=== PATIENT | female | born 1950 | race Caucasian/White ===

== ENCOUNTER → 2023-11-21 08:49 | Outpatient (REF) | payer MEDICARE, OTHER, SELFPAY | LOC: HWRAD 08:49 | PROVIDERS: ATTENDING PHYSICIAN Nurse Practitioner Family | DX: R39.9 Unspecified symptoms and signs involving the genitourinary system (principal); R10.9 Unspecified abdominal pain; R31.9 Hematuria, unspecified | CPT/HCPCS: 76770 ==

== ENCOUNTER → 2023-12-02 07:55 | Outpatient (REF) | payer MEDICARE, OTHER, SELFPAY ==
[2023-12-02 10:03] LABS: % Basophils 1.4 % (0-2); % Eosinophils 7.4 % (0-6); % Immature Granulocytes 0.4 % (0-0.5); % Lymphocytes 32.2 % (20.5-51.1); % Monocytes 9.7 % (1.7-9.3); % Neutrophils 48.9 % (42.2-75.2); Absolute Basophils 0.1 10^3/uL (0-0.2); Absolute Eosinophils 0.4 10^3/uL (0-0.7); Absolute Lymphocytes 1.6 10^3/uL (1.2-3.4); Absolute Monocytes 0.5 10^3/uL (0.1-0.6); Absolute Neutrophils 2.4 10^3/uL (1.4-6.5); Hematocrit 40.8 % (37.0-47.0); Hemoglobin 14.2 g/dL (12.0-16.0); Mean Corp Hgb Conc. 34.8 g/dL (33.0-37.0); Mean Corpuscular Hgb 29.8 pg (27.0-31.0); Mean Corpuscular Volume 85.5 fL (81.0-99.0); Nucleated Red Blood Cells % 0 %; Platelet Count 197 10^3/uL (130-400); Red Blood Cell Count 4.77 10^6/uL (4.20-5.40); Red Cell Dist. Width 13.2 % (11.5-14.5); White Blood Cell Count 4.9 10^3/uL (4.8-10.8)
[2023-12-02 10:06] LABS: Urine Albumin Negative (Neg - Trace); Urine Bilirubin Negative (Negative); Urine Character Clear (Clear); Urine Color Yellow; Urine Glucose Negative (Negative); Urine Ketone Negative (Negative); Urine Leukocyte 1+ (Negative); Urine Nitrite Negative (Negative); Urine Occult Blood Trace (Negative); Urine Urobilinogen Negative (Neg - 1+)
[2023-12-02 10:20] LABS: ALT (SGPT) 27 U/L (0-35); AST (SGOT) 32 U/L (14-36); Alkaline Phosphatase 101 U/L (38-126); Blood Urea Nitrogen 17 mg/dl (7-17); Calcium 9.6 mg/dl (8.4-10.2); Carbon Dioxide 28 mmol/L (22-30); Chloride 106 mmol/L (98-107); Glucose 93 mg/dl (70-99); HDL Cholesterol 69 mg/dl; LDL Cholesterol, Calculated 83 mg/dl; Potassium 4.5 mmol/L (3.5-5.1); Sodium 138 mmol/L (135-145); Total Bilirubin 0.5 mg/dl (0.2-1.3); Total Cholesterol 167 mg/dl (50-199); Total Protein 6.3 g/dl (6.3-8.2); Triglyceride 78 mg/dl (10-149); Very Low Density Lipoprotein 15 mg/dl (0-30); eGFR > 60.00
[2023-12-02 10:25] LABS: Urine Red Blood Cell 0-2 /HPF (0-2); Urine Squamous Cell 21-25 /LPF (Few)
[2023-12-02 10:26] LABS: Urine Bacteria Few (Negative)
[2023-12-02 10:32] LABS: Vitamin D, 25-OH*** 49.2 ng/mL (30-80)
[2023-12-02 10:46] LABS: TSH Reflex To Free T4 2.27 uIU/ml (0.47-4.68)
== END ==
LOC: HWLAB 07:55
PROVIDERS: ATTENDING PHYSICIAN Nurse Practitioner Family
DX: I63.9 Cerebral infarction, unspecified (principal); R41.3 Other amnesia; E78.5 Hyperlipidemia, unspecified; E55.9 Vitamin D deficiency, unspecified; F32.A Depression, unspecified; R41.89 Other symptoms and signs involving cognitive functions and awareness; R25.1 Tremor, unspecified; I65.23 Occlusion and stenosis of bilateral carotid arteries; I44.4 Left anterior fascicular block
CPT/HCPCS: 36415; 80053; 80061; 81003; 81015; 82306; 84443; 85025; 87086

== ENCOUNTER → 2023-12-27 12:50 | Outpatient (REF) | payer MEDICARE, OTHER, SELFPAY | LOC: HWRAD 12:50 | PROVIDERS: ATTENDING PHYSICIAN Nurse Practitioner Family | DX: R22.1 Localized swelling, mass and lump, neck (principal) | CPT/HCPCS: 76536 ==

== ENCOUNTER 2024-01-26 21:15 | Emergency (ER) | payer MEDICARE, OTHER, SELFPAY ==
[2024-01-26 21:22] VITALS: BP 200/82
[2024-01-26 21:51] LABS: % Basophils 0.8 % (0-2); % Eosinophils 2.5 % (0-6); % Immature Granulocytes 0.2 % (0-0.5); % Lymphocytes 35.4 % (20.5-51.1); % Monocytes 9.6 % (1.7-9.3); % Neutrophils 51.5 % (42.2-75.2); Absolute Basophils 0.1 10^3/uL (0-0.2); Absolute Eosinophils 0.2 10^3/uL (0-0.7); Absolute Lymphocytes 2.3 10^3/uL (1.2-3.4); Absolute Monocytes 0.6 10^3/uL (0.1-0.6); Absolute Neutrophils 3.3 10^3/uL (1.4-6.5); Hematocrit 38.8 % (37.0-47.0); Hemoglobin 13.8 g/dL (12.0-16.0); Mean Corp Hgb Conc. 35.6 g/dL (33.0-37.0); Mean Corpuscular Hgb 30.5 pg (27.0-31.0); Mean Corpuscular Volume 85.7 fL (81.0-99.0); Mean Platelet Volume 8.7 fL (7.4-10.4); Nucleated Red Blood Cells % 0 %; Platelet Count 216 10^3/uL (130-400); Red Blood Cell Count 4.53 10^6/uL (4.20-5.40); Red Cell Dist. Width 13.7 % (11.5-14.5); White Blood Cell Count 6.4 10^3/uL (4.8-10.8)
[2024-01-26 22:10] LABS: ALT (SGPT) 48 U/L (0-35); AST (SGOT) 49 U/L (14-36); Albumin 4.4 g/dl (3.5-5.0); Alkaline Phosphatase 123 U/L (38-126); Blood Urea Nitrogen 22 mg/dl (7-17); Calcium 10.1 mg/dl (8.4-10.2); Carbon Dioxide 25 mmol/L (22-30); Chloride 106 mmol/L (98-107); Glucose 100 mg/dl (70-99); Lipase 172 U/L (23-300); Potassium 3.9 mmol/L (3.5-5.1); Sodium 136 mmol/L (135-145); Total Bilirubin 0.3 mg/dl (0.2-1.3); Total Protein 6.7 g/dl (6.3-8.2); eGFR > 60.00
[2024-01-26 22:15] LABS: Troponin I < 0.012 ng/ml
--- NOTE | 2024-01-26 23:00 | ED.GENMED ---
History of Present Illness
General
Chief Complaint: Chest Pain
Time Seen by Provider: 01/26/24 22:39
Travel History
Have you had any contact with someone who has COVID-19?: No
Do you have any symptoms of coronavirus? Fever > 100 degrees, chills, cough, shortness of breath, sore throat, loss of taste or smell, muscle aches, or headache?: No
History of Present Illness
History of Present Illness:
HPI: Patient presents with chest discomfort ongoing for the past few days. She also tells me she has been using an elliptical earlier this week without any increase in pain during exertion. She also think that using the elliptical may be
contributing to ongoing and worsening right hip to the sensation that she is having tremendous instability causing her to have difficulty walking. She does not think that she is going to be able to go on her upcoming trip to [place] tomorrow.
She also reports GI kind of symptoms and had pain in her chest going into her back. She has tried her 's PPI without improvement. She has had colonoscopy and was told she has some sort of colitis in the past. She is found to be
hypertensive here and was told that she has a high blood pressure reading at 160 a few months ago for which she was supposed to follow-up for repeat blood pressure check.
EXAM:
GENERAL: Well appearing in no distress
HEENT: Moist oral mucosa
CARDIOVASCULAR: Systolic murmur in the right upper sternal border, normal heart rate, regular rhythm, No chest wall tenderness
PULMONARY: No respiratory distress, breath sounds are clear and equal
ABDOMEN: Soft with no peritoneal signs, no tenderness
NEUROLOGIC: Excellent strength all extremities, no coordination deficits
PSYCHIATRIC: Appropriate mental status, normal insight and judgement
EXTREMITIES: Nontender, no edema, moves all extremities equally, there is no specific pain at the right hip with passive range of motion and she only has slightly decreased active range of motion
SKIN: No rash, no lesions
TIME OF INITIAL ENCOUNTER:
NUMBER AND COMPLEXITY OF PROBLEMS ADDRESSED AT THE ENCOUNTER
� Chronic conditions affecting care: Hyperlipidemia, skin cancer, asthma
� Acute Exacerbation and/or Progression of Chronic Illness: This is an acute problem
� Differential Diagnosis includes: Osteoarthritis, noncardiac chest pain, ACS, GI etiology of chest discomfort such as GERD
AMOUNT AND/OR COMPLEXITY OF DATA TO BE REVIEWED AND ANALYZED
� I performed an independent evaluation of and my interpretation is:
EKG: Sinus 63, left axis deviation, no acute ST abnormality however there is some poor R wave progression which is only slightly more prominent now in comparison to 04/13/2013
CT:
X-rays: X-ray of the chest is, x-ray of the right hip shows some mild DJD
Laboratory Studies: Troponin less than 0.012, CBC and other chemistries unremarkable
Other:
� Review of other/old records: Echo from 2021 showed normal diastolic function and normal systolic function with no significant valvular disease; stress echo from 2019 was unremarkable
� Clinical information was obtained by an independent historian: I spoke to the at bedside
� Prescriptions/Medications Considered but not given:
� Further testing considered but not performed:
RISK OF COMPLICATIONS AND/OR MORBIDITY OR MORTALITY OF PATIENT MANAGEMENT
� Social determinants of health affecting care: Lives at home
� Discussion with other providers:
� Escalation of care including admission/observation vs risk of discharge considered: The patient's symptoms may be multifactorial. Her symptoms became most severe around 12 noon today and currently has no pain without any
intervention. Her troponin is currently negative. EKG is unremarkable. Blood pressures have been elevated close to around 200 on multiple checks. She states that she had a blood pressure reading of 160 at her PMD office. I am placing her on
losartan and she is to continue checking her blood pressure at home. She has no chest pain throughout her stay in the ED.
Past History
Past History
ED Past Medical History: Asthma (mild ), Hypercholesterolemia and Other (pancreatitis)
ED Past Surgical History: Orthopedic (dr santiago )
Social History
Tobacco: Non-smoker
Alcohol: None
Drug: None
Personal:
Living: with family
Employment: Employed
Family History
Family History: Hypertension; Negative Early CAD
Phy Exam
Physical Exam
Physical Exam:
See HPI
Scores
Heart Score for Chest Pain Patients
STEMI patient?: Not applicable
Course
Orders/Labs/Results
Orders:
Orders
01/26/24 21:31
Electrocardiogram (*1) Urgent
Reason for Study: Chest Pain
EKG- Treatment ONCE
01/26/24 21:46
CMP [Comprehensive Metabolic Panel] Urgent
Complete Blood Count/With Diff Urgent
Lipase Urgent
Troponin I Urgent
01/26/24 23:14
CR Chest - 2 Views Urgent
Comment:
Reason For Exam: CP
CR Hip - RT w/wo Pel 2-3 Vw* Urgent
Comment:
Reason For Exam: pain
Include a pelvis x-ray?: Yes
Abnormal Lab Results
01/26/24
21:46
Monocytes % 9.6 H %
(1.7-9.3)
BUN 22 H mg/dl
(7-17)
Creatinine 0.5 L mg/dL
(0.6-1.0)
Glucose 100 H mg/dl
(70-99)
AST 49 H U/L
(14-36)
ALT 48 H U/L
(0-35)
01/26/24 21:46
01/26/24 21:46
Vital Signs
Initial and Last Documented VS:
Initial Vital Signs
Temp Pulse Resp BP Pulse Ox
97.6 F 64 18 200/82 100
01/26/24 21:22 01/26/24 21:22 01/26/24 21:22 01/26/24 21:22 01/26/24 21:22
Last Documented Vital Signs
Temp Pulse Resp BP Pulse Ox
97.6 F 64 18 200/82 100
01/26/24 21:22 01/26/24 21:22 01/26/24 21:22 01/26/24 21:22 01/26/24 21:22
*Critical Care Note
Total Time (30-74mins, 75-104mins- exclusive of procedures): Not Applicable
ED Attending Note
-
Portions of this chart may have been created with voice recognition software.� Occasional wrong word or��sound alike� substitutions may have occurred due to the inherent limitations of voice recognition software.
Discharge Plan
Departure
Prescriptions:
No Action
fluticasone propion-salmeterol [Advair Diskus] 1 DISK blister with device
1 puff inhalation BID
aspirin 81 MG tablet,delayed release (DR/EC)
81 mg PO DAILY
ibuprofen 600 MG tablet
600 mg PO DAILY
albuterol sulfate [Proventil HFA] 90 MCG/PUFF HFA aerosol inhaler
1 puff inhalation QID PRN (Reason: sob)
docosahexaenoic acid-epa 1 CAP capsule
1 cap PO DAILY
rosuvastatin [Crestor] 10 MG tablet
10 mg PO DAILY
multivitamin with folic acid [Tab-A-Bonita] 1 TABLET tablet
1 tab PO DAILY
prednisone 50 MG tablet
50 mg PO DAILY Qty: 7 0RF
Referrals:
Kelsie Mederos DO [Family Provider] -
Interventions
Interventions:
*Risk Screen - Suicide Last Done: 01/26/24 21:22
*General Assessment Last Done: 01/26/24 23:13
*Neglect/Abuse Screening Last Done: 01/26/24 21:22
ED- Fall Risk Assessment Last Done: 01/26/24 23:13
*ED COVID-19 Vaccine History Last Done: 01/26/24 23:13
ED- Cardiac Assessment Last Done: 01/26/24 23:13
ED-Musculoskeletal Assessment Last Done: 01/26/24 23:13
Discharge Date and Time
Print Language: BAHAMIAN
[2024-01-26 23:11] VITALS: BP 200/99
--- NOTE | 2024-01-26 23:20 | EDRN ---
that she over the last month intermittently she had a pain that radiates across groin from R hip. pt has fallen from her knees giving out.
[2024-01-27 00:07] VITALS: BP 172/73
== END 2024-01-27 01:25 | disposition home or self-care (01) ==
LOC: EMR 21:15
PROVIDERS: Emergency Medicine; EMERGENCY PHYSICIAN Emergency Medicine; FAMILY PHYSICIAN Family Medicine
DX: R07.89 Other chest pain (principal)
CPT/HCPCS: 99283; 71046; 73502; 80053; 83690; 84484; 85025; 93005

== ENCOUNTER 2024-01-31 09:28 | Emergency (ER) | payer MEDICARE, OTHER, SELFPAY ==
[2024-01-31 09:37] VITALS: BP 165/88
[2024-01-31 10:13] VITALS: BMI 30.8
[2024-01-31 10:32] LABS: % Eosinophils 1.7 % (0-6); % Immature Granulocytes 0.2 % (0-0.5); % Lymphocytes 23.8 % (20.5-51.1); % Monocytes 8.2 % (1.7-9.3); % Neutrophils 65.1 % (42.2-75.2); Absolute Basophils 0.1 10^3/uL (0-0.2); Absolute Eosinophils 0.1 10^3/uL (0-0.7); Absolute Lymphocytes 1.4 10^3/uL (1.2-3.4); Absolute Monocytes 0.5 10^3/uL (0.1-0.6); Absolute Neutrophils 3.9 10^3/uL (1.4-6.5); Hemoglobin 14.8 g/dL (12.0-16.0); Mean Corp Hgb Conc. 35.2 g/dL (33.0-37.0); Mean Corpuscular Hgb 30.4 pg (27.0-31.0); Mean Corpuscular Volume 86.2 fL (81.0-99.0); Mean Platelet Volume 8.6 fL (7.4-10.4); Nucleated Red Blood Cells % 0 %; Platelet Count 207 10^3/uL (130-400); Red Blood Cell Count 4.87 10^6/uL (4.20-5.40); Red Cell Dist. Width 13.3 % (11.5-14.5)
[2024-01-31 10:45] LABS: ALT (SGPT) 38 U/L (0-35); AST (SGOT) 38 U/L (14-36); Albumin 4.5 g/dl (3.5-5.0); Alkaline Phosphatase 76 U/L (38-126); Blood Urea Nitrogen 18 mg/dl (7-17); Calcium 9.9 mg/dl (8.4-10.2); Carbon Dioxide 26 mmol/L (22-30); Chloride 107 mmol/L (98-107); Estimated Creatinine Clearance 82 ml/min; Glucose 92 mg/dl (70-99); Potassium 4.5 mmol/L (3.5-5.1); Sodium 137 mmol/L (135-145); Total Bilirubin 0.7 mg/dl (0.2-1.3); Total Protein 6.9 g/dl (6.3-8.2); eGFR > 60.00
[2024-01-31 10:55] LABS: Troponin I < 0.012 ng/ml
[2024-01-31 11:03] LABS: Lipase 67 U/L (23-300)
[2024-01-31] MEDS: MORPHINE SULFATE 4 MG IV (11:41)
[2024-01-31] MEDS: ZOFRAN 4 MG IV (11:42)
--- NOTE | 2024-01-31 14:47 | ED.GENMED ---
History of Present Illness
General
Chief Complaint: Chest Pain
Source: patient and family
Time Seen by Provider: 01/31/24 10:05
Travel History
Have you had any contact with someone who has COVID-19?: No
Do you have any symptoms of coronavirus? Fever > 100 degrees, chills, cough, shortness of breath, sore throat, loss of taste or smell, muscle aches, or headache?: No
Past History
Past History
ED Past Medical History: Asthma (mild ), Hypercholesterolemia and Other (pancreatitis)
ED Past Surgical History: Orthopedic (dr santiago )
Social History
Tobacco: Non-smoker
Alcohol: None
Drug: None
Personal:
Living: with family
Employment: Employed
Family History
Family History: Hypertension; Negative Early CAD
Course
Orders/Labs/Results
Orders:
Orders
01/31/24 09:30
Electrocardiogram (*1) Urgent
Reason for Study: Chest Pain
EKG- Treatment ONCE
01/31/24 10:23
Complete Blood Count/With Diff Urgent
Comprehensive Metabolic Panel Urgent
Lipase Urgent
Comment: ADD ON
Troponin I Urgent
01/31/24 10:42
Add On- LAB Urgent
Tests Added?: lipase
01/31/24 10:43
CT Chest/abd/pelvis Angio W/wo Urgent
Comment:
Reason For Exam: cp, back pain
01/31/24 10:45
Morphine Sulfate 4 mg IV NOW STA
01/31/24 10:46
Ondansetron Injectable [Zofran] 4 mg IV NOW STA
Abnormal Lab Results
01/31/24
10:23
BUN 18 H mg/dl
(7-17)
Creatinine 0.5 L mg/dL
(0.6-1.0)
AST 38 H U/L
(14-36)
ALT 38 H U/L
(0-35)
01/31/24 10:23
01/31/24 10:23
Vital Signs
Initial and Last Documented VS:
Initial Vital Signs
Temp Pulse Resp BP Pulse Ox
98.7 F 73 20 165/88 98
01/31/24 09:37 01/31/24 09:37 01/31/24 09:37 01/31/24 09:37 01/31/24 09:37
Last Documented Vital Signs
Temp Pulse Resp BP Pulse Ox
98.7 F 59 13 165/88 98
01/31/24 09:37 01/31/24 13:00 01/31/24 13:00 01/31/24 09:37 01/31/24 09:37
ED Attending Note
-
Portions of this chart may have been created with voice recognition software.� Occasional wrong word or��sound alike� substitutions may have occurred due to the inherent limitations of voice recognition software.
Discharge Plan
Departure
Patient Disposition: Home (Routine Discharge)
Date of Disposition: 01/31/24
Time of Disposition: 14:47
Patient with high blood pressure during this ER visit?: Yes
Discharge Problem:
Cholelithiasis, Hernia, hiatal
Instructions: Hiatal hernia, Gallstones
Prescriptions:
New
pantoprazole [Protonix] 40 mg tablet,delayed release (DR/EC)
40 mg PO DAILY Qty: 30 0RF
Rx Instructions:
Please take 30 minutes prior to eating or drinking anything in the morning.
No Action
fluticasone propion-salmeterol [Advair Diskus] 1 DISK blister with device
1 puff inhalation BID
aspirin 81 MG tablet,delayed release (DR/EC)
81 mg PO DAILY
ibuprofen 600 MG tablet
600 mg PO DAILY
albuterol sulfate [Proventil HFA] 90 MCG/PUFF HFA aerosol inhaler
1 puff inhalation QID PRN (Reason: sob)
docosahexaenoic acid-epa 1 CAP capsule
1 cap PO DAILY
rosuvastatin [Crestor] 10 MG tablet
10 mg PO DAILY
multivitamin with folic acid [Tab-A-Bonita] 1 TABLET tablet
1 tab PO DAILY
prednisone 50 MG tablet
50 mg PO DAILY Qty: 7 0RF
losartan 50 mg tablet
50 mg PO DAILY Qty: 30 0RF
Referrals:
Sahra Kaiser CRNP [Family Provider] -
Activity Restrictions/Additional Instructions:
Please see GI in follow-up in the next 1 week. Return to immediately for intractable vomiting, worsening pain, fevers or any other concerns. Please be sure to eat a no fat diet keep your diet bland. I recommend small meals instead of large meals.
Drink plenty of fluids.
Interventions
Interventions:
ED- Fall Risk Assessment Last Done: 01/31/24 10:13
*ED COVID-19 Vaccine History Last Done: 01/31/24 09:43
ED- Cardiac Assessment Last Done: 01/31/24 10:13
Discharge Date and Time
Print Language: LUXEMBOURGISH
[2024-01-31 15:55] VITALS: BP 125/75
== END 2024-01-31 16:05 | disposition home or self-care (01) ==
LOC: EMR 09:28
PROVIDERS: EMERGENCY PHYSICIAN Emergency Medicine; FAMILY PHYSICIAN Nurse Practitioner Family
DX: K80.20 Calculus of gallbladder without cholecystitis without obstruction (principal); K44.9 Diaphragmatic hernia without obstruction or gangrene; R03.0 Elevated blood-pressure reading, without diagnosis of hypertension
CPT/HCPCS: 99285; 96374; 96375; 71275; 74174; 80053; 83690; 84484; 85025; 93005; Q9967

== ENCOUNTER → 2024-02-21 18:15 | Outpatient (REF) | payer MEDICARE, OTHER, SELFPAY | LOC: PAVMRI 18:15 | PROVIDERS: ATTENDING PHYSICIAN Physician Assistant Surgical | DX: M25.551 Pain in right hip (principal) | CPT/HCPCS: 73721 ==

== ENCOUNTER → 2024-03-03 14:16 | Outpatient (REF) | payer MEDICARE, OTHER, SELFPAY | LOC: RCS 14:16 | PROVIDERS: ATTENDING PHYSICIAN Nurse Practitioner; FAMILY PHYSICIAN Family Medicine | DX: R06.09 Other forms of dyspnea (principal) | CPT/HCPCS: 93017; 93350 ==

== ENCOUNTER → 2024-03-19 07:15 | Outpatient (REF) | payer MEDICARE, OTHER, SELFPAY ==
[2024-03-19 10:17] LABS: ALT (SGPT) 29 U/L (0-35); AST (SGOT) 38 U/L (14-36); Albumin 4.5 g/dl (3.5-5.0); Alkaline Phosphatase 82 U/L (38-126); Blood Urea Nitrogen 21 mg/dl (7-17); Calcium 9.8 mg/dl (8.4-10.2); Carbon Dioxide 28 mmol/L (22-30); Chloride 106 mmol/L (98-107); Glucose 84 mg/dl (70-99); Potassium 3.9 mmol/L (3.5-5.1); Sodium 140 mmol/L (135-145); Total Bilirubin 0.7 mg/dl (0.2-1.3); Total Protein 6.8 g/dl (6.3-8.2); eGFR > 60.00
== END ==
LOC: HWLAB 07:15
PROVIDERS: ATTENDING PHYSICIAN Internal Medicine; FAMILY PHYSICIAN Nurse Practitioner Family
DX: R74.8 Abnormal levels of other serum enzymes (principal)
CPT/HCPCS: 36415; 80053

== ENCOUNTER → 2024-03-20 06:21 | Day surgery (SDC) | payer MEDICARE, OTHER, SELFPAY | LOC: GI 06:21 | PROVIDERS: ATTENDING PHYSICIAN Internal Medicine | DX: R13.10 Dysphagia, unspecified (principal); R14.0 Abdominal distension (gaseous); R07.89 Other chest pain; K44.9 Diaphragmatic hernia without obstruction or gangrene; Q39.9 Congenital malformation of esophagus, unspecified; K31.89 Other diseases of stomach and duodenum; I89.0 Lymphedema, not elsewhere classified; K20.90 Esophagitis, unspecified without bleeding | CPT/HCPCS: 43239; 88305; 88342 ==

== ENCOUNTER → 2024-09-07 08:10 | Outpatient (REF) | payer MEDICARE, OTHER, SELFPAY | LOC: UCDH 08:10 | PROVIDERS: ATTENDING PHYSICIAN Physician Assistant Medical; FAMILY PHYSICIAN Family Medicine | DX: S60.022A Contusion of left index finger without damage to nail, initial encounter (principal) | CPT/HCPCS: 73140 ==

== ENCOUNTER → 2024-09-21 07:02 | Outpatient (REF) | payer MEDICARE, OTHER, SELFPAY ==
[2024-09-21 09:37] LABS: % Basophils 1.1 % (0-2); % Eosinophils 1.6 % (0-6); % Immature Granulocytes 0.3 % (0-0.5); % Lymphocytes 33.2 % (20.5-51.1); % Monocytes 9.8 % (1.7-9.3); Absolute Eosinophils 0.1 10^3/uL (0-0.7); Absolute Lymphocytes 1.2 10^3/uL (1.2-3.4); Absolute Monocytes 0.4 10^3/uL (0.1-0.6); Hemoglobin 14.2 g/dL (12.0-16.0); Mean Corpuscular Hgb 29.2 pg (27.0-31.0); Mean Corpuscular Volume 88.5 fL (81.0-99.0); Mean Platelet Volume 9.7 fL (7.4-10.4); Nucleated Red Blood Cells % 0 %; Platelet Count 192 10^3/uL (130-400); Red Blood Cell Count 4.86 10^6/uL (4.20-5.40); Red Cell Dist. Width 12.7 % (11.5-14.5); White Blood Cell Count 3.7 10^3/uL (4.8-10.8)
[2024-09-21 09:38] LABS: ALT (SGPT) 25 U/L (0-35); AST (SGOT) 30 U/L (14-36); Albumin 4.3 g/dl (3.5-5.0); Alkaline Phosphatase 69 U/L (38-126); Blood Urea Nitrogen 12 mg/dl (7-17); Calcium 9.9 mg/dl (8.4-10.2); Carbon Dioxide 29 mmol/L (22-30); Chloride 103 mmol/L (98-107); Glucose 92 mg/dl (70-99); Sodium 139 mmol/L (135-145); Total Bilirubin 0.5 mg/dl (0.2-1.3); Total Protein 6.5 g/dl (6.3-8.2); eGFR > 60.00
== END ==
LOC: HWLAB 07:02
PROVIDERS: ATTENDING PHYSICIAN Orthopaedic Surgery; FAMILY PHYSICIAN Family Medicine; REFERRING PHYSICIAN Internal Medicine
DX: Z01.818 Encounter for other preprocedural examination (principal); R74.8 Abnormal levels of other serum enzymes
CPT/HCPCS: 36415; 80053; 85025

== ENCOUNTER → 2024-09-24 08:57 | Outpatient (REF) | payer MEDICARE, OTHER, SELFPAY | LOC: RAD 08:57 | PROVIDERS: ATTENDING PHYSICIAN Nurse Practitioner Family | DX: Z01.818 Encounter for other preprocedural examination (principal) | CPT/HCPCS: 71046 ==

== ENCOUNTER → 2025-03-03 06:42 | Outpatient (REF) | payer MEDICARE, OTHER, SELFPAY ==
[2025-03-03 09:25] LABS: % Basophils 1.6 % (0-2); % Eosinophils 4.4 % (0-6); % Immature Granulocytes 0.3 % (0-0.5); % Lymphocytes 26.8 % (20.5-51.1); % Monocytes 10.1 % (1.7-9.3); % Neutrophils 56.8 % (42.2-75.2); Absolute Basophils 0.1 10^3/uL (0-0.2); Absolute Eosinophils 0.2 10^3/uL (0-0.7); Absolute Monocytes 0.4 10^3/uL (0.1-0.6); Absolute Neutrophils 2.1 10^3/uL (1.4-6.5); Hematocrit 41.5 % (37.0-47.0); Hemoglobin 14.2 g/dL (12.0-16.0); Mean Corp Hgb Conc. 34.2 g/dL (33.0-37.0); Mean Corpuscular Volume 84.9 fL (81.0-99.0); Mean Platelet Volume 9.5 fL (7.4-10.4); Nucleated Red Blood Cells % 0 %; Platelet Count 197 10^3/uL (130-400); Red Blood Cell Count 4.89 10^6/uL (4.20-5.40); Red Cell Dist. Width 13.6 % (11.5-14.5); White Blood Cell Count 3.7 10^3/uL (4.8-10.8)
[2025-03-03 09:35] LABS: ALT (SGPT) 27 U/L (0-35); AST (SGOT) 34 U/L (14-36); Albumin 4.5 g/dl (3.5-5.0); Alkaline Phosphatase 85 U/L (38-126); Blood Urea Nitrogen 13 mg/dl (7-17); Calcium 9.9 mg/dl (8.4-10.2); Carbon Dioxide 26 mmol/L (22-30); Chloride 109 mmol/L (98-107); Glucose 97 mg/dl (70-99); HDL Cholesterol 64 mg/dl; LDL Cholesterol, Calculated 113 mg/dl; Potassium 4.1 mmol/L (3.5-5.1); Sodium 142 mmol/L (135-145); Total Bilirubin 0.7 mg/dl (0.2-1.3); Total Cholesterol 193 mg/dl (50-199); Total Protein 6.7 g/dl (6.3-8.2); Triglyceride 82 mg/dl (10-149); Very Low Density Lipoprotein 16 mg/dl (0-30); eGFR > 60.00
[2025-03-03 10:26] LABS: TSH Reflex To Free T4 2.06 uIU/ml (0.47-4.68)
== END ==
LOC: HWLAB 06:42
PROVIDERS: ATTENDING PHYSICIAN Internal Medicine; FAMILY PHYSICIAN Family Medicine
DX: I65.23 Occlusion and stenosis of bilateral carotid arteries (principal); E78.5 Hyperlipidemia, unspecified; R06.09 Other forms of dyspnea
CPT/HCPCS: 36415; 80053; 80061; 84443; 85025

== ENCOUNTER → 2025-03-08 14:52 | Outpatient (REF) | payer MEDICARE, OTHER, SELFPAY | LOC: RCS 14:52 | PROVIDERS: ATTENDING PHYSICIAN Internal Medicine; FAMILY PHYSICIAN Family Medicine | DX: I65.23 Occlusion and stenosis of bilateral carotid arteries (principal); R06.09 Other forms of dyspnea; R42 Dizziness and giddiness; R61 Generalized hyperhidrosis | CPT/HCPCS: 93306 ==

== ENCOUNTER → 2025-03-09 11:38 | Outpatient (REF) | payer MEDICARE, OTHER, SELFPAY | LOC: RCS 11:38 | PROVIDERS: ATTENDING PHYSICIAN Internal Medicine; FAMILY PHYSICIAN Family Medicine | DX: I65.23 Occlusion and stenosis of bilateral carotid arteries (principal); R06.09 Other forms of dyspnea; R42 Dizziness and giddiness; R61 Generalized hyperhidrosis | CPT/HCPCS: 78452; 93017; A9500 ==

== ENCOUNTER 2025-04-15 19:15 | Emergency (ER) | payer MEDICARE, OTHER, SELFPAY ==
[2025-04-15 19:18] VITALS: BP 168/87
[2025-04-15 21:47] VITALS: BP 142/63
[2025-04-15 21:49] VITALS: BMI 32.4
[2025-04-15 22:00] VITALS: BP 156/80
[2025-04-15] MEDS: VALIUM 2 MG PO (22:34)
--- NOTE | 2025-04-15 22:45 | ED.MUSCINJ ---
HPI-Injury
General
Chief Complaint: Musculo-Skeletal Complaint
Source: patient
Exam Limitations: none
Time Seen by Provider: 04/15/25 21:29
History of Present Illness-Injury
Initial Injury comments:
74-year-old female not anticoagulated presents complaining of right lower rib pain. She fell today landing on her hands. She was seen in urgent care and found to have a distal radius and possibly distal ulnar fracture. She was placed in a splint
and a sling however upon leaving the urgent care she developed more chest wall discomfort. It is sharp stabbing in nature worse with motion and breathing at times. No vomiting. No other complaints at this time
Past History
Past History
ED Past Medical History: Asthma (mild ), Hypercholesterolemia and Other (pancreatitis)
ED Past Surgical History: Orthopedic (dr santiago )
Social History
Tobacco: Non-smoker
Alcohol: None
Drug: None
Personal:
Living: with family
Employment: Employed
Family History
Family History: Hypertension; Negative Early CAD
Phy Exam
Physical Exam
Physical Exam:
General: Well-appearing female in no acute respiratory distress
HEENT normocephalic atraumatic heart: Regular rate and rhythm
Lungs: Clear breath sounds heard all moore
Musculoskeletal exam: There is tenderness over the right anterior lateral chest wall without for deformity
Abdomen is soft no right upper quadrant tenderness no ecchymosis or swelling
Injury Course
Orders/Labs/Results
Orders:
Orders
04/15/25 19:21
CR Ribs-right 3 Vw W/pa Chest* Urgent
Comment:
Reason For Exam: fall
04/15/25 22:02
Diazepam [Valium] 2 mg PO NOW STA
MDM/Problems Addressed
Differential Diagnosis Includes:
Right chest wall pain after fall. Consider contusion versus chest wall strain versus rib fracture or pneumothorax
X-rays of the right ribs were taken through triage which are negative for acute fracture or pneumothorax. Suspect underlying strain. Patient's pain seems to be spasmodic will try Valium.
*Pulse Oximetry
SaO2: 94
Oxygen Mode of Delivery: Room air
Patient hypoxic: no
*Critical Care Note
Total Time (30-74mins, 75-104mins- exclusive of procedures): Not Applicable
ED Attending Note
-
Portions of this chart may have been created with voice recognition software.� Occasional wrong word or��sound alike� substitutions may have occurred due to the inherent limitations of voice recognition software.
Discharge Plan
Departure
Patient Disposition: Home (Routine Discharge)
Date of Disposition: 04/15/25
Time of Disposition: 22:47
Patient with high blood pressure during this ER visit?: No
Discharge Problem:
Strain of chest wall
Instructions: Muscle and Bone Pain (DC)
Prescriptions:
New
diazepam [Valium] 2 mg tablet
2 mg PO TID PRN (Reason: muscle spasm) Qty: 10 0RF
No Action
fluticasone propion-salmeterol [Advair Diskus] 1 DISK blister with device
1 puff inhalation BID
aspirin 81 MG tablet,delayed release (DR/EC)
81 mg PO DAILY
ibuprofen 600 MG tablet
600 mg PO DAILY
albuterol sulfate [Proventil HFA] 90 MCG/PUFF HFA aerosol inhaler
1 puff inhalation QID PRN (Reason: sob)
docosahexaenoic acid-epa 1 CAP capsule
1 cap PO DAILY
rosuvastatin [Crestor] 10 MG tablet
10 mg PO DAILY
multivitamin with folic acid [Tab-A-Bonita] 1 TABLET tablet
1 tab PO DAILY
prednisone 50 MG tablet
50 mg PO DAILY Qty: 7 0RF
losartan 50 mg tablet
50 mg PO DAILY Qty: 30 0RF
pantoprazole [Protonix] 40 mg tablet,delayed release (DR/EC)
40 mg PO DAILY Qty: 30 0RF
Rx Instructions:
Please take 30 minutes prior to eating or drinking anything in the morning.
Referrals:
Kelsie Mederos DO [Family Provider, Family Practice]
Activity Restrictions/Additional Instructions:
Rest. Avoid heavy lifting or twisting. Use muscle relaxer as needed for spasm. Continue with Tylenol and Motrin for pain. Return if worse otherwise follow-up with your doctor
Interventions
Interventions:
*Risk Screen - Suicide Last Done: 04/15/25 19:18
*General Assessment Last Done: 04/15/25 19:18
*Neglect/Abuse Screening Last Done: 04/15/25 19:18
*ED- Fall Risk Assessment Last Done: 04/15/25 21:50
*ED COVID-19 Vaccine History Last Done: 04/15/25 21:50
Discharge Date and Time
Print Language: BELARUSIAN
== END 2025-04-15 23:20 | disposition home or self-care (01) ==
LOC: EMR 19:15
PROVIDERS: EMERGENCY PHYSICIAN Emergency Medicine; FAMILY PHYSICIAN Family Medicine
DX: S29.011A Strain of muscle and tendon of front wall of thorax, initial encounter (principal); W19.XXXA Unspecified fall, initial encounter; R07.81 Pleurodynia; J45.909 Unspecified asthma, uncomplicated; E78.00 Pure hypercholesterolemia, unspecified; Z82.49 Family history of ischemic heart disease and other diseases of the circulatory system
CPT/HCPCS: 99283; 29125; 71101

== ENCOUNTER → 2025-06-23 09:21 | Outpatient (REF) | payer MEDICARE, OTHER, SELFPAY | LOC: RAD 09:21 | PROVIDERS: ATTENDING PHYSICIAN Nurse Practitioner Family | DX: M85.80 Other specified disorders of bone density and structure, unspecified site (principal); M85.89 Other specified disorders of bone density and structure, multiple sites | CPT/HCPCS: 77080 ==

== ENCOUNTER → 2025-06-24 07:00 | Outpatient (REF) | payer MEDICARE, OTHER, SELFPAY ==
[2025-06-24 10:52] LABS: ALT (SGPT) 28 U/L (0-35); AST (SGOT) 33 U/L (14-36); HDL Cholesterol 73 mg/dl; LDL Cholesterol, Calculated 66 mg/dl; Very Low Density Lipoprotein 14 mg/dl (0-30)
== END ==
LOC: HWLAB 07:00
PROVIDERS: ATTENDING PHYSICIAN Internal Medicine; FAMILY PHYSICIAN Nurse Practitioner Family
DX: E78.5 Hyperlipidemia, unspecified (principal)
CPT/HCPCS: 36415; 80061; 84450; 84460

== ENCOUNTER → 2025-06-25 15:57 | Outpatient (REF) | payer MEDICARE, OTHER, SELFPAY ==
[2025-06-25 16:46] LABS: Urine Character Clear (Clear)
[2025-06-25 19:41] LABS: Urine Squamous Cell 16-20 /LPF (Few)
== END ==
LOC: REG 15:57
PROVIDERS: ATTENDING PHYSICIAN Nurse Practitioner Family
DX: R10.9 Unspecified abdominal pain (principal); R35.0 Frequency of micturition
CPT/HCPCS: 81003; 81015; 87086

== ENCOUNTER → 2025-07-22 13:34 | Outpatient (REF) | payer MEDICARE, OTHER, SELFPAY | LOC: HWRAD 13:34 | PROVIDERS: ATTENDING PHYSICIAN Family Medicine | DX: S99.921A Unspecified injury of right foot, initial encounter (principal); M79.674 Pain in right toe(s) | CPT/HCPCS: 73660 ==

== ENCOUNTER → 2025-09-15 07:36 | Outpatient (REF) | payer MEDICARE, OTHER, SELFPAY ==
[2025-09-15 08:54] LABS: Hematocrit 41.6 % (37.0-47.0); Hemoglobin 14.4 g/dL (12.0-16.0); Mean Corp Hgb Conc. 34.6 g/dL (33.0-37.0); Mean Corpuscular Volume 87.8 fL (81.0-99.0); Nucleated Red Blood Cells % 0 %; Platelet Count 192 10^3/uL (130-400); Red Cell Dist. Width 12.9 % (11.5-14.5)
[2025-09-15 10:36] LABS: Blood Urea Nitrogen 15 mg/dl (7-17); Calcium 10.0 mg/dl (8.4-10.2); Carbon Dioxide 28 mmol/L (22-30); Chloride 107 mmol/L (98-107); Glucose 85 mg/dl (70-99); Potassium 4.3 mmol/L (3.5-5.1); Sodium 139 mmol/L (135-145); eGFR > 60.00
== END ==
LOC: REG 07:36
PROVIDERS: ATTENDING PHYSICIAN Orthopaedic Surgery; FAMILY PHYSICIAN Nurse Practitioner Family
DX: Z01.818 Encounter for other preprocedural examination (principal)
CPT/HCPCS: 36415; 80048; 85025; 93005

== ENCOUNTER → 2025-09-17 07:08 | Outpatient (REF) | payer MEDICARE, OTHER, SELFPAY ==
[2025-09-17 07:58] LABS: Urine Character Clear (Clear)
[2025-09-17 13:26] LABS: Urine Urothelial Cell 0-2 /LPF (FEW)
[2025-09-17 13:27] LABS: Urine White Cell 16-20 /HPF (0-5)
== END ==
LOC: REG 07:08
PROVIDERS: ATTENDING PHYSICIAN Nurse Practitioner Family
DX: R31.9 Hematuria, unspecified (principal)
CPT/HCPCS: 81003; 81015

== ENCOUNTER → 2025-09-20 11:36 | Outpatient (REF) | payer MEDICARE, OTHER, SELFPAY | LOC: REG 11:36 | PROVIDERS: ATTENDING PHYSICIAN Nurse Practitioner Family | DX: R82.90 Unspecified abnormal findings in urine (principal) | CPT/HCPCS: 87086 ==